=== PATIENT | female | born 1975 | race Two or more races ===

== ENCOUNTER 2021-02-07 19:06 | Emergency (ER) | payer OTHER ==
[~2021-02-07] VITALS: Ht 162.6 cm; Wt 101.2 kg
[2021-02-07] MEDS ORDERED: ANAPROX (19:56)
[2021-02-07] MEDS ORDERED: PRENATALES (19:57)
== END 2021-02-07 23:27 | disposition home or self-care (01) ==
LOC: ER 19:06
DX: N93.8 Other specified abnormal uterine and vaginal bleeding (principal)

== ENCOUNTER 2021-03-02 07:45 | Inpatient (IN) | payer OTHER ==
[~2021-03-02] VITALS: Ht 162.6 cm; Wt 100.7 kg
[~2021-03-02 07:45] MED LIST: ANAPROX; PRENATALES
== END 2021-03-13 11:45 | disposition home or self-care (01) | DRG 743 ==
LOC: ADM 07:45 → EDSTATUS 03-10 07:45 → SURH 03-10 07:45 → CIR.AMB 03-10 07:45 → O/R 03-10 08:47 → SURH 03-10 09:30 → OB/GYN 03-10 20:44
PROVIDERS: ADMIT Obstetrics & Gynecology; ATTEND Obstetrics & Gynecology
PROC: 0UB70ZZ Excision of Bilateral Fallopian Tubes, Open Approach (ICD-10-PCS; 2021-03-10)
PROC: 0UT90ZZ Resection of Uterus, Open Approach (ICD-10-PCS; principal; 2021-03-10 09:30)
DX: N72 Inflammatory disease of cervix uteri (principal); N87.9 Dysplasia of cervix uteri, unspecified; N83.8 Other noninflammatory disorders of ovary, fallopian tube and broad ligament; N93.9 Abnormal uterine and vaginal bleeding, unspecified; Q63.2 Ectopic kidney

== ENCOUNTER 2021-03-02 09:47 | Outpatient (CLI) | payer OTHER | END 2021-03-02 10:04 | disposition home or self-care (01) | LOC: SONOGRAMA 09:47 | PROVIDERS: ATTEND Obstetrics & Gynecology | DX: N28.89 Other specified disorders of kidney and ureter (principal) ==